=== PATIENT | female | born 1980 | race Caucasian/White ===

== ENCOUNTER 2017-02-05 00:03 | Emergency (ER) | payer OTHER ==
[2017-02-05] MEDS ORDERED: HYDROcodone/APAP 5-325MG 1 EACH TAB PO STA (00:39)
--- NOTE | 2017-02-05 00:46 | ED ---
General Adult HPI - General Chief complaint: Dental/Oral Stated complaint: dental pain Time Seen by Provider: 02/05/17 00:35 Source: patient, RN notes reviewed Mode of arrival: ambulatory Limitations: no limitations - History of Present Illness Initial comments: Patient is a pleasant 37-year-old female presenting to the emergency department complaining of dental pain. Patient broke her tooth on a peanut 3 days ago. Patient complains of dental discomfort increasing throughout the day. did call dentist however was unable to get appointment on Saturday. No swelling. No fever. No history of similar problems previously with this tooth. - Related Data Previous Rx's Medication Instructions Recorded Hydrocodone/Acetaminophen [Noble 1 each PO Q4HR PRN #12 tab 02/05/17 5-325] Penicillin V Potassium [Pen Vee K] 500 mg PO QID #40 tab 02/05/17 Allergies Allergy/AdvReac Type Severity Reaction Status Date / Time sulfamethoxazole Allergy Swelling Verified 02/05/17 00:07 [From Bactrim] tramadol Allergy Vomiting Verified 02/05/17 00:07 trimethoprim [From Bactrim] Allergy Swelling Verified 02/05/17 00:07 Review of Systems ROS Statement: Those systems with pertinent positive or pertinent negative responses have been documented in the HPI. ROS Other: All systems not noted in ROS Statement are negative. Constitutional: Denies: fever Eyes: Denies: eye pain ENT: Denies: ear pain Respiratory: Denies: cough Cardiovascular: Denies: chest pain Endocrine: Denies: fatigue Gastrointestinal: Denies: abdominal pain Genitourinary: Denies: dysuria Musculoskeletal: Denies: back pain Skin: Denies: rash Neurological: Denies: weakness Past Medical History Past Medical History: No Reported History History of Any Multi-Drug Resistant Organisms: None Reported Past Surgical History: Tubal Ligation Past Psychological History: No Psychological Hx Reported Smoking Status: Never smoker Past Alcohol Use History: None Reported Past Drug Use History: None Reported General Exam Limitations: no limitations General appearance: alert, in no apparent distress Head exam: Present: atraumatic Eye exam: Present: normal appearance, PERRL ENT exam: Present: normal oropharynx, other (Left lower molar with tenderness and possible small fracture. No surrounding abscess or erythema. No facial swelling.) Neck exam: Present: normal inspection Respiratory exam: Present: normal lung sounds bilaterally Cardiovascular Exam: Present: regular rate, normal rhythm GI/Abdominal exam: Present: soft. Absent: tenderness Extremities exam: Present: normal inspection Neurological exam: Present: alert Psychiatric exam: Present: normal affect, normal mood Skin exam: Present: normal color Course Vital Signs 02/05/17 00:04 Temperature 97.9 F Pulse Rate 80 Respiratory 18 Rate Blood Pressure 126/79 O2 Sat by Pulse 96 Oximetry Disposition Clinical Impression: Dentalgia Disposition: HOME SELF-CARE Condition: Stable Instructions: Toothache (ED) Additional Instructions: Please follow-up with your dentist in the next day or 2 for recheck. Return for fever, swelling, worsening symptoms or other concerns. Prescriptions: Hydrocodone/Acetaminophen [Noble 5-325] 1 each PO Q4HR PRN #12 tab PRN Reason: Pain Penicillin V Potassium [Pen Vee K] 500 mg PO QID #40 tab Referrals: Olga Arboleda MD [STAFF PHYSICIAN] - 1-2 days Time of Disposition: 00:46
[2017-02-05 01:08] VITALS: BP 123/80; PULSE 79; RESP 16; TEMP 98
== END 2017-02-05 01:08 | disposition home or self-care (01) ==
LOC: EC 00:03
DX: K08.89 Other specified disorders of teeth and supporting structures (principal); Z88.2 Allergy status to sulfonamides; Z88.6 Allergy status to analgesic agent
CPT/HCPCS: 99282

== ENCOUNTER 2017-02-15 15:43 | Emergency (ER) | payer OTHER ==
--- NOTE | 2017-02-15 16:02 | ED ---
Upper Extremity HPI - General Stated Complaint: Wrist Injury Time Seen by Provider: 02/15/17 15:56 Source: RN notes reviewed, old records reviewed - History of Present Illness Initial Comments: This is a 37-year-old female presenting to the emergency Department chief complaint of left wrist pain. Patient reports she was moving a TV and attempt over and landed on her left wrist. Patient states that she has pain with flexion and extension of the wrist. The pain is mainly over the lateral aspect of the wrist towards her thumb. She denies any numbness or tingling, fingers. She denies any previous injuries to the rest her hand. She is right-handed. Patient denies any recent fever, chills, shortness of breath, chest pain, back pain, abdominal pain, nausea vomiting, numbness or tingling, dysuria or hematuria, constipation or diarrhea, headaches or visual changes, or any other current symptoms - Related Data Home Medications Medication Instructions Recorded Confirmed No Known Home Medications [No 02/15/17 02/15/17 Known Home Medications] Allergies Allergy/AdvReac Type Severity Reaction Status Date / Time gemfibrozil [From Lopid] Allergy Swelling Verified 02/15/17 16:02 sulfamethoxazole Allergy Swelling Verified 02/15/17 16:02 [From Bactrim] trimethoprim [From Bactrim] Allergy Swelling Verified 02/15/17 16:02 tramadol AdvReac Vomiting Verified 02/15/17 16:02 Review of Systems ROS Statement: Those systems with pertinent positive or pertinent negative responses have been documented in the HPI. ROS Other: All systems not noted in ROS Statement are negative. Past Medical History Past Medical History: No Reported History History of Any Multi-Drug Resistant Organisms: None Reported Past Surgical History: Tubal Ligation Past Psychological History: No Psychological Hx Reported Smoking Status: Never smoker Past Alcohol Use History: None Reported Past Drug Use History: None Reported General Exam - General Exam Comments Initial Comments: 37-year-old female. No acute distress. General appearance: alert, in no apparent distress Head exam: Present: atraumatic, normocephalic, normal inspection Eye exam: Present: normal appearance, PERRL, EOMI. Absent: scleral icterus, conjunctival injection, periorbital swelling ENT exam: Present: normal exam, mucous membranes moist Neck exam: Present: normal inspection. Absent: tenderness, meningismus, lymphadenopathy Respiratory exam: Present: normal lung sounds bilaterally. Absent: respiratory distress, wheezes, rales, rhonchi, stridor Cardiovascular Exam: Present: regular rate, normal rhythm, normal heart sounds. Absent: systolic murmur, diastolic murmur, rubs, gallop, clicks GI/Abdominal exam: Present: soft, normal bowel sounds. Absent: distended, tenderness, guarding, rebound, rigid Extremities exam: Present: normal inspection, full ROM, normal capillary refill. Absent: tenderness, pedal edema, joint swelling, calf tenderness Right Elbow exam: Present: normal inspection, full ROM Forearm Wrist exam: Present: tenderness, swelling (Patient has some tenderness and swelling over the right lateral wrist. Patient is tender over the snuffbox. ), ecchymosis, tenderness over anatomical snuff box. Absent: normal inspection , laceration, deformity, dislocation Hand Wrist exam: Present: normal inspection, full ROM Neuro motor exam: Present: wrist extension intact, thumb opposition intact, thumb IP flexion intact, thumb adduction intact, fingers 2-5 abduction intact Neurosensory exam: Present: radial nerve intact Vascular: Present: normal capillary refill Back exam: Present: normal inspection Neurological exam: Present: alert, oriented X3, CN II-XII intact Psychiatric exam: Present: normal affect, normal mood Skin exam: Present: warm, dry, intact, normal color. Absent: rash Course Vital Signs 02/15/17 15:57 Temperature 97.6 F Pulse Rate 88 Respiratory 18 Rate Blood Pressure 120/57 O2 Sat by Pulse 98 Oximetry Procedures - Orthopedic Splinting/Casting Injury #1 Side: left Upper Extremity Injury Location: wrist Upper Extremity Immobilizer: thumb spica Medical Decision Making - Medical Decision Making [id number] female presents emergency Department chief complaint of left wrist pain after a TV fell on it when she was trying to remove it. Patient is tender over the anatomical snuffbox. Evidence of bruising and swelling over the wrist. Patient x-ray was reviewed and negative for any acute process. Given the tenderness over the snuffbox I will put the patient in a splint. Discussed following up with orthopedic or removing the splint if the pain is subsiding within the next week. Patient understands treatment plan will comply. Return parameters were discussed. - Radiology Data Radiology results: report reviewed X-ray was reviewed and negative for any acute process. Disposition Clinical Impression: Wrist contusion Disposition: HOME SELF-CARE Condition: Good Instructions: Wrist Injury (ED) Additional Instructions: Patient advised to follow-up with orthopedics physician within the next week. Remain in the splint until seen by orthopedic. Patient to take Motrin and Tylenol for pain. Return to the emergency department if any alarming signs or symptoms occur. Referrals: None,Stated [Primary Care Provider] - 1-2 days Bill Acosta DO [Doctor of Osteopathic Medicine] - 1-2 days Time of Disposition: 16:17
--- NOTE | 2017-02-15 16:12 | XR ---
EXAMINATION TYPE: XR wrist complete LT DATE OF EXAM: 02/15/2017 CLINICAL HISTORY: Radial side pain after injury. TECHNIQUE: Frontal, lateral , scaphoid, and oblique images of the left wrist are obtained. COMPARISON: None FINDINGS: There is no acute fracture/dislocation evident in the left wrist. The joint spaces in the left wrist appear within normal limits. The overlying soft tissue appears unremarkable. IMPRESSION: There is no acute fracture or dislocation in the left wrist.
[2017-02-15 16:13] VITALS: BP 120/57; PULSE 88; RESP 18; TEMP 97.6
[2017-02-15] MEDS ORDERED: IBUPROFEN 600 MG STARTER PACK 4 TAB BTL PO STA (16:16)
== END 2017-02-15 16:28 | disposition home or self-care (01) ==
LOC: EC 15:43
DX: S60.212A Contusion of left wrist, initial encounter (principal); Z88.2 Allergy status to sulfonamides; Z88.6 Allergy status to analgesic agent; Z88.8 Allergy status to other drugs, medicaments and biological substances; W20.8XXA Other cause of strike by thrown, projected or falling object, initial encounter; Y92.009 Unspecified place in unspecified non-institutional (private) residence as the place of occurrence of the external cause
CPT/HCPCS: 29125; 99284

== ENCOUNTER 2017-04-03 14:46 | Emergency (ER) | payer SELFPAY ==
[2017-04-03 15:00] VITALS: RESP 18
[2017-04-03] MEDS ORDERED: HYDROmorphone 1 MG/ML 1 ML SYRINGE IM STA (15:33)
[2017-04-03] MEDS ORDERED: predniSONE 20 MG TAB PO STA (15:34)
--- NOTE | 2017-04-03 15:39 | ED ---
General Adult HPI - General Chief complaint: Back Pain/Injury Stated complaint: back pain Time Seen by Provider: 04/03/17 15:28 Source: patient, RN notes reviewed Mode of arrival: ambulatory Limitations: no limitations - History of Present Illness Initial comments: Chief complaint history of present illness is a 37-year-old female reports that she was lifting heavy pumpkins she felt acute discomfort and pop in her left paralumbar region. Denies any pain radiates down left or right no pain to the buttock or down the legs. - Related Data Previous Rx's Medication Instructions Recorded Hydrocodone/Acetaminophen [[place] 1 each PO Q6HR PRN #12 tab 04/03/17 5-325] methylPREDNISolone Dose Pack 4 mg PO DIRECTED #21 package 04/03/17 [Medrol Dose Pack] Allergies Allergy/AdvReac Type Severity Reaction Status Date / Time gemfibrozil [From Lopid] Allergy Swelling Verified 04/03/17 15:39 sulfamethoxazole Allergy Swelling Verified 04/03/17 15:39 [From Bactrim] trimethoprim [From Bactrim] Allergy Swelling Verified 04/03/17 15:39 tramadol AdvReac Vomiting Verified 04/03/17 15:39 Review of Systems ROS Statement: Those systems with pertinent positive or pertinent negative responses have been documented in the HPI. View of systems no other complaints other than discomfort to the left paralumbar region. Asked medical problems similar thing happened in 2010. She states she rested for 2 weeks and had physical therapy and the pain went away. Denies ever having had any lumbar disc ruptures. All systems are reviewed. Past medical problems significant for surgeries cholecystectomy, bilateral tubal ligation wisdom teeth. Family history no cancers. Patient has ALLERGIES to gemfibrozil , sulfa and tramadol. Patient's nonsmoker nondrinker. ROS Other: All systems not noted in ROS Statement are negative. Past Medical History Past Medical History: No Reported History History of Any Multi-Drug Resistant Organisms: None Reported Past Surgical History: Cholecystectomy, Tubal Ligation Additional Past Surgical History / Comment(s): wisdom teeth Past Psychological History: No Psychological Hx Reported Smoking Status: Never smoker Past Alcohol Use History: None Reported Past Drug Use History: None Reported General Exam - General Exam Comments Initial Comments: General: The patient is awake and alert, complaining of left paralumbar pain. Vital signs temperature 98.2 pulse 94 respiratory rate 18 pulse ox on percent room air blood pressure 141/80 Eye: Pupils are equal, extra-ocular movements are intact; there is normal conjunctiva bilaterally. No signs of icterus. Ears, nose, mouth and throat: There are moist mucous membranes Neck: The neck is supple, there is no tenderness Cardiovascular: There is a regular rate and rhythm. No murmur, rub or gallop is appreciated. Respiratory: Lungs are clear to auscultation, respirations are non-labored, breath sounds are equal. No wheezes, stridor, rales, or rhonchi. Gastrointestinal: No complaint of abdominal pain no nausea no vomiting. Back: Pain left paralumbar region. Increases with movement and palpation. Acute onset while lifting a heavy pumpkin. No radiation of pain to the lower extremities. , no complaint of any difficulty urinating or bowel movements. Able to flex her muscles in the gluteal region. Musculoskeletal: No complaint of abdominal pain. Neurological: CN II-XII intact, There are no obvious motor or sensory deficits. Coordination appears grossly intact. Speech is normal. No neuro deficits Limitations: no limitations Course Vital Signs 04/03/17 14:57 Temperature 98.2 F Pulse Rate 94 Respiratory 18 Rate Blood Pressure 141/80 O2 Sat by Pulse 100 Oximetry Medical Decision Making - Medical Decision Making Vital decision making; x-rays of lumbosacral spine were done and reviewed by radiologist his final impression is may be some mild disc desiccation. Scoliosis. Postoperative changes. Mild disc height loss at L4-L5 and L5-S1. As read by Dr. Beaulieu. She will be placed on a Medrol dosepak with 2 days of Valium and ibuprofen. Disposition Clinical Impression: Acute lumbosacral myofascial strain Disposition: HOME SELF-CARE Condition: Fair Instructions: Acute Low Back Pain (ED) Additional Instructions: Ice alternating with heat area pain. Medrol Dosepak and and [place] which was requested by the patient. Prescriptions: Hydrocodone/Acetaminophen [[place] 5-325] 1 each PO Q6HR PRN #12 tab PRN Reason: Pain methylPREDNISolone Dose Pack [Medrol Dose Pack] 4 mg PO DIRECTED #21 package Referrals: None,Stated [Primary Care Provider] - 1-2 days Time of Disposition: 16:16
--- NOTE | 2017-04-03 16:03 | XR ---
Lumbosacral spine HISTORY: Pain, felt pop lifting 5 views of the lumbosacral spine Surgical clips present in the right upper quadrant. Levoscoliosis is centered at L3. There is no spon dylolysis or spondylolisthesis. Lumbar vertebral bodies show preserved height and alignment. Mild dis c height loss at L4-5 and L5-S1. IMPRESSION: There may be some mild disc desiccation. Scoliosis. Postop changes.
[2017-04-03 16:23] VITALS: BP 127/60; PULSE 80; TEMP 97.2
== END 2017-04-03 16:23 | disposition home or self-care (01) ==
LOC: EC 14:46
DX: S39.012A Strain of muscle, fascia and tendon of lower back, initial encounter (principal); Z88.1 Allergy status to other antibiotic agents; Z88.5 Allergy status to narcotic agent; Z88.8 Allergy status to other drugs, medicaments and biological substances; X50.9XXA Other and unspecified overexertion or strenuous movements or postures, initial encounter; Y93.89 Activity, other specified; Y92.89 Other specified places as the place of occurrence of the external cause
CPT/HCPCS: 99283 ×2; 96372 ×2; 72110; J1170; J7512